=== PATIENT | female | born 1950 | race Caucasian/White ===

== ENCOUNTER → 2017-06-30 | Outpatient (CLI) | payer MEDICARE, MEDICAID ==
[~2017-06-30] MED LIST: ADVAIR 250/5028 PUFF IN; ADVAIR DISKUS 21 DSK INH; ALBUTEROL-200 PUFFS/ IH; ALBUTEROL-200 PUFFS/ INH; ANTIVERT GENERI25 MG PO; AZITHROMYCIN250 MG PO; BACTRIM DS 8001 TAB PO; CRESTOR10 MG PO; DARVOCET-N 1001 EACH PO; DOXYCYCLINE HY100 M4 PO; ESCITALOPRAM 2020 MG PO; FLEXERIL10 MG PO; HYDROCHLOROTHIA25 M1 PO; IBU-8800 MG PO; LEVAQUIN500 MG PO; LEXAPRO 20 MG T20 MG PO; LISINOPRIL-HYDR1 TA2 PO; MAVIK2 MG PO; MECLIZINE25 MG PO; MEDROL 4MG. DOSE4 MG PO; METHYLPRED DP4 MG PO; MOBIC15 MG PO; NEXIUM40 MG PO; NORCO 325 MG-101 TAB PO; OMEPRAZOLE MAGN20 MG PO; PERCOCET 10 MG1 EACH PO; PREDNISONE 20MG20 MG PO; PREDNISONE20 MG PO; PROPRANOLOL HCL20 MG PO; ROBITUSSIN120 ML/BOT PO; TESSALON PERLE100 M1 PO; TRICOR 145 MG145 MG PO; VICODIN 5/500 T1 TAB PO; ZITHROMAX Z PA250 MG PO; ZITHROMAX Z-PA250 M1 PO
[2017-06-30 09:09] LABS: HEMOGLOBIN 13.8 g/dL (12.2-16.2); LYMPH # 1.4 K/mm3 (0.7-4.5); LYMPH % 26.9 % (10-50.0)
[2017-06-30 10:33] LABS: BUN 19 mg/dL (7-18)
[2017-06-30 11:24] LABS: GFR (ESTIMATED) 56 ML/MIN (59-)
== END ==
LOC: LAB 08:55
PROVIDERS: Nurse Practitioner Family
DX: I10 Essential (primary) hypertension (principal); E78.5 Hyperlipidemia, unspecified; E55.9 Vitamin D deficiency, unspecified; K21.9 Gastro-esophageal reflux disease without esophagitis